=== PATIENT | male | born 1985 | race Asian ===

== ENCOUNTER 2020-09-25 15:30 | Outpatient (CLI) | payer BC | END 2020-09-25 15:31 | disposition home or self-care (01) | LOC: CTENTCT 15:30 | PROVIDERS: ATTEND Student in an Organized Health Care Education/Training Program | DX: H90.8 Mixed conductive and sensorineural hearing loss, unspecified (principal); L92.9 Granulomatous disorder of the skin and subcutaneous tissue, unspecified | CPT/HCPCS: 70486 ==

== ENCOUNTER 2021-04-08 09:58 | Outpatient (CLI) | payer BC ==
[2021-04-08 19:28] LABS: SARS-CoV-2 PCR by NAA Not Detected (NotDetected)
== END 2021-04-08 09:59 | disposition home or self-care (01) ==
LOC: LABBT 09:58
PROVIDERS: ATTEND Psychiatry & Neurology Neurology
DX: Z01.812 Encounter for preprocedural laboratory examination (principal); H71.90 Unspecified cholesteatoma, unspecified ear; H69.80 Other specified disorders of Eustachian tube, unspecified ear; H90.2 Conductive hearing loss, unspecified; H93.8X9 Other specified disorders of ear, unspecified ear; Z20.822 Contact with and (suspected) exposure to COVID-19
CPT/HCPCS: U0003; U0005

== ENCOUNTER 2021-04-13 06:15 | Day surgery (SDC) | payer BC ==
[2021-04-13] MEDS ORDERED: Lidocaine 1% w/Epinephrine 1:100K 20 ML VIAL ONE (06:27)
[2021-04-13] MEDS ORDERED: EPINEPHrine 1 MG/ML AMP ONE ×2 (06:27→06:42)
[2021-04-13] MEDS ORDERED: Bacitracin Zinc Ointment 30 gm TUBE ONE (06:27)
[2021-04-13] MEDS ORDERED: Bupivacaine 0.25% HCL 30 ML VIAL ONE (06:27)
[2021-04-13] MEDS ORDERED: Fentanyl 100 MCG/2 ML VIAL ONE ×2 (06:28)
[2021-04-13] MEDS ORDERED: Neomycin-Polymyxin 1 ML AMP ONE (06:51)
[2021-04-13] MEDS ORDERED: Midazolam HCl 2 mg/2 ml Vial ONE (06:58)
[2021-04-13] MEDS ORDERED: Lidocaine 1% PF 5 ML VIAL ONE (07:36)
[2021-04-13] MEDS ORDERED: Dexamethasone 20 MG/5 ML VIAL ONE (07:36)
[2021-04-13] MEDS ORDERED: PROPOFOL 200 MG/20 ML VIAL ONE (07:36)
[2021-04-13] MEDS ORDERED: Rocuronium Bromide 10 MG/ML (10ML VIAL) ONE (07:36)
[2021-04-13] MEDS ORDERED: Ondansetron PF 4 MG/2 ML Vial ONE (07:36)
[2021-04-13] MEDS ORDERED: ePHEDrine 50 MG/ML VIAL ONE (07:36)
[2021-04-13] MEDS ORDERED: PHENYLEPHRINE-NS 100 MCG/ML 10 ML SYRINGE ONE (07:36)
[2021-04-13] MEDS ORDERED: HYDROcodone/Acetaminophen 5/325 mg Tablet ONE (12:19)
== END 2021-04-13 13:00 | disposition home or self-care (01) ==
LOC: SDC 06:15
PROVIDERS: ATTEND Psychiatry & Neurology Neurology
PROC: 0NB50ZZ Excision of Right Temporal Bone, Open Approach (ICD-10-PCS; principal; 2021-04-13)
DX: H90.2 Conductive hearing loss, unspecified (principal); H74.8X1 Other specified disorders of right middle ear and mastoid; H71.91 Unspecified cholesteatoma, right ear; H69.80 Other specified disorders of Eustachian tube, unspecified ear; H93.8X9 Other specified disorders of ear, unspecified ear; E78.00 Pure hypercholesterolemia, unspecified; Z79.899 Other long term (current) drug therapy; Z88.0 Allergy status to penicillin; Z98.890 Other specified postprocedural states
CPT/HCPCS: 88305; J0171; J1100; J2250; J2405; J2704; J3010; J3490; S0020